=== PATIENT | male | born 1985 | race Native Hawaiian/Other Pacific Islander ===

== ENCOUNTER 2017-03-09 17:05 | Emergency (ER) | payer SELFPAY | END 2017-03-09 17:16 | disposition home or self-care (01) | LOC: ER 17:05 | PROC: 2W3NX1Z Immobilization of Right Upper Leg using Splint (ICD-10-PCS; principal; 2017-03-09) | DX: S89.91XA Unspecified injury of right lower leg, initial encounter (principal); Z88.2 Allergy status to sulfonamides; W19.XXXA Unspecified fall, initial encounter | CPT/HCPCS: 73560-RT; 99283; A9270-GY ==